=== PATIENT | female | born 1970 | race Caucasian/White ===

== ENCOUNTER → 2019-03-01 17:05 | Outpatient (CLI) | payer OTHER, SELFPAY ==
[2019-03-06 14:36] LABS: HPV Reflexed? NOT INDICATED
== END ==
PROVIDERS: PCP Family Medicine; Referring Provider Obstetrics & Gynecology; Visit Provider Obstetrics & Gynecology
DX: Z12.4 Encounter for screening for malignant neoplasm of cervix (principal)
CPT/HCPCS: 88175; G0145